=== PATIENT | female | born 1980 | race American Indian/Alaskan Native ===

== ENCOUNTER 2016-12-31 12:10 | Emergency (ER) | payer OTHER ==
[2016-12-31 12:30] VITALS: BP 120/77
[2016-12-31 13:10] LABS: Basophils % (Auto) 0.8 % (0.0-1.8); Eosinophils % (Auto) 0.4 % (0.0-4.3); Hematocrit 37.6 % (30.3-42.9); Hemoglobin 13.1 gm/dl (10.1-14.3); Mean Corpuscular HGB Conc 35 % (30-34); Mean Corpuscular Hemoglobin 34 pg (28-32); Mean Corpuscular Volume 96 fl (79-97); Platelet Count 258 K/mm3 (140-440); White Blood Count 7.1 K/mm3 (4.5-11.0)
[2016-12-31 13:38] LABS: Anion Gap 17 mmol/L; BUN/Creatinine Ratio 17; Blood Urea Nitrogen 10 mg/dL (7-17); Calcium 8.8 mg/dL (8.4-10.2); Carbon Dioxide 27 mmol/L (22-30); Chloride 104.3 mmol/L (98-107); Glucose 92 mg/dL (65-100); Potassium 3.9 mmol/L (3.6-5.0); Sodium 144 mmol/L (137-145)
[2016-12-31 13:46] LABS: Bilirubin,Urine NEG (Negative); Blood,Urine NEG (Negative); Ketones,Urine NEG (Negative); Leukocyte Esterase,Urine NEG (Negative); Mucus,Urine 2+ /HPF; Nitrite,Urine NEG (Negative)
--- NOTE | 2017-01-02 12:58 | ED Elopement Review ---
ED Pt Elopement review - Results review Lab results: Laboratory Tests 12/31/16 12/31/16 12/31/16 12:53 12:53 13:24 WBC 7.1 RBC 3.90 Hgb 13.1 Hct 37.6 MCV 96 MCH 34 H MCHC 35 H RDW 12.0 L Plt Count 258 Lymph % (Auto) 13.3 L [place] % (Auto) 6.2 Eos % (Auto) 0.4 Baso % (Auto) 0.8 Lymph # 0.9 L [place] # 0.4 Eos # 0.0 Baso # 0.1 Seg Neutrophils % 79.3 H Seg Neutrophils # 5.6 Sodium 144 Potassium 3.9 Chloride 104.3 Carbon Dioxide 27 Anion Gap 17 BUN 10 Creatinine 0.6 L Estimated GFR > 60 BUN/Creatinine Ratio 17 Glucose 92 Calcium 8.8 Urine Color Yellow Urine Turbidity Clear Urine pH 8.0 H Ur Specific [place] 1.020 Urine Protein 30 mg/dl Urine Glucose (UA) Neg Urine Ketones Neg Urine Blood Neg Urine Nitrite Neg Urine Bilirubin Neg Urine Urobilinogen 2.0 Ur Leukocyte Esterase Neg Urine WBC (Auto) 1.0 Urine RBC (Auto) 1.0 U Epithel Cells (Auto) 1.0 Urine Mucus 2+ - Call Back decision Pt Call Back Decision: No action required
== END 2016-12-31 12:55 | disposition left against medical advice (07) ==
LOC: ED 12:10
DX: R51 Headache (principal); Z53.21 Procedure and treatment not carried out due to patient leaving prior to being seen by health care provider
CPT/HCPCS: 36415; 80048; 81001; 85025; 93005; 93010